=== PATIENT | male | born 1960 | race Caucasian/White ===

== ENCOUNTER 2018-04-15 17:10 | Emergency (ER) | payer BC ==
--- NOTE | 2018-04-15 17:49 | ED ---
Lower Extremity - HPI Summary HPI Summary: This is joseph Crane documenting for attending Kike Javier MD. This patient is a 57 year old M presenting to [facility] with a chief complaint of a swollen L calf since 04/05/2018. The patient rates the pain 0/10 in severity. The patient saw PMD (Dr. Shane) who did a D-dimer and sent the patient to the ED as the test was elevated (735). The patient also reports a bee sting on his left kneecap which swelled up on 04/11/2018. Patient denies CP and SOB. He denies PMHx of clots and denies a FHx of clots. - History of Current Complaint Chief Complaint: EDExtremityLower Stated Complaint: LT CALF SWELLING Time Seen by Provider: 04/15/18 17:20 Hx Obtained From: Patient Severity Initially: Mild Severity Currently: Mild Pain Intensity: 0 Pain Scale Used: 0-10 Numeric - Allergies/Home Medications Allergies/Adverse Reactions: Allergies Allergy/AdvReac Type Severity Reaction Status Date / Time No Known Allergies Allergy Verified 04/15/18 17:28 PMH/Surg Hx/FS Hx/Imm Hx Cardiovascular History: Reports: Other Cardiovascular Problems/Disorders - HLD GI History: Reports: Hx Diverticulosis Infectious Disease History: No Infectious Disease History: Denies: Traveled Outside the [place] in Last 30 Days - Family History Known Family History: Positive: Cardiac Disease - brother of [place] age 51 - Social History Occupation: Employed Full-time - Self-employed dentist Review of Systems Negative: Fever, Chills Negative: Erythema Negative: Sore Throat Negative: Chest Pain Negative: Shortness Of Breath, Cough Negative: Abdominal Pain, Vomiting, Nausea Negative: dysuria, hematuria Positive: Other - Swollen L calf and knee. Negative: Myalgia, Edema Negative: Rash Neurological: Other - Denies dizziness All Other Systems Reviewed And Are Negative: Yes Physical Exam - Summary Physical Exam Summary: General: Well appearing, no distress Cardiovascular: Skin is well perfused Pulmonary: No respiratory distress, no tachypnea Abdomen: Non-distended Skin: Warm, pink, dry Psych: Normal affect Neuro: A&Ox3 Triage Information Reviewed: Yes Vital Signs On Initial Exam: Initial Vitals Temp Pulse Resp BP Pulse Ox 97.5 F 67 17 146/109 97 04/15/18 17:18 04/15/18 17:18 08/02/18 17:18 04/15/18 17:18 04/15/18 17:18 Vital Signs Reviewed: Yes Diagnostics - Vital Signs Vital Signs Temp Pulse Resp BP Pulse Ox 04/15/18 17:18 97.5 F 67 17 146/109 97 - Laboratory Lab Statement: Any lab studies that have been ordered have been reviewed, and results considered in the medical decision making process. - Ultrasound No standard instances Ultrasound Interpretation Completed By: Radiologist - Venous Doppler Study shows : NO EVIDENCE OF DEEP VENOUS THROMBOSIS IS IDENTIFIED. Physician has reviewed this report. Lower Extremity Course/Dx - Diagnoses Provider Diagnoses: Bee sting reaction Discharge - Sign-Out/Discharge Documenting (check all that apply): Patient Departure - DC - Discharge Plan Condition: Stable Disposition: HOME Patient Education Materials: Insect Bite or Sting (ED) Referrals: Librado Spangler MD [Primary Care Provider] - (Follow up in 2-3 days.) Additional Instructions: Follow up with your primary care physician, Dr. Shane, in 2-3 days. Keep your leg elevated on a pillow at night. RETURN TO THE EMERGENCY DEPARTMENT FOR CHANGING OR WORSENING SYMPTOMS
--- NOTE | 2018-04-15 18:07 | RAD ---
Indication: Left calf edema. Duplex Doppler sonography of the deep venous system of the left lower extremity deep venous system was performed. Bilaterally the common femoral veins appear patent and compressible. Left proximal greater saphenous vein, proximal deep femoral vein, femoral vein, popliteal vein, posterior tibial veins and peroneal veins appear patent and compressible.Popliteal cyst measuring 2.8 x 0.6 x 2.4 cm noted. IMPRESSION: NO EVIDENCE OF DEEP VENOUS THROMBOSIS IS IDENTIFIED.
[2018-04-15 18:36] VITALS: BP 135/90
== END 2018-04-15 18:36 | disposition home or self-care (01) ==
LOC: ED 17:10
DX: S80.262A Insect bite (nonvenomous), left knee, initial encounter (principal); W57.XXXA Bitten or stung by nonvenomous insect and other nonvenomous arthropods, initial encounter; Y92.9 Unspecified place or not applicable; Z86.718 Personal history of other venous thrombosis and embolism
CPT/HCPCS: 99282